=== PATIENT | female | born 2000 | race Caucasian/White ===

== ENCOUNTER → 2021-01-04 | Outpatient (CLI) | payer BC ==
[~2021-01-04] MED LIST: AMITRIPTYLINE H25 M1 PO; AMOXICILLIN 50500 MG PO; CAPACET 325 MG-1 CAP; MOTRIN 600600 MG/TAB PO; NEXPLANON68 MG ID; NORCO 325 MG-51 TAB PO; OMNICEF 300MG300 MG PO; PEPCID 20MG TAB20 MG PO; PERCOCET 325 MG1 TA2 PO; PRIL40 PO; ZOFRAN 4MG T4 MG/TAB PO; ZOFRAN ODT4 MG PO; ZYRTEC 10MG10 MG PO
== END ==
LOC: COL.RAD 09:32
DX: K21.9 Gastro-esophageal reflux disease without esophagitis (principal)
CPT/HCPCS: A9537; J2805

== ENCOUNTER 2021-01-13 11:44 | Day surgery (SDC) | payer BC ==
[~2021-01-13] VITALS: Ht 170.2 cm; Wt 96.2 kg
[~2021-01-13 11:44] MED LIST changes: -AMITRIPTYLINE H25 M1 PO; -MOTRIN 600600 MG/TAB PO; -PEPCID 20MG TAB20 MG PO; -PERCOCET 325 MG1 TA2 PO; -PRIL40 PO; -ZOFRAN 4MG T4 MG/TAB PO; -ZOFRAN ODT4 MG PO; -ZYRTEC 10MG10 MG PO
[2021-01-13] MEDS ORDERED: PRIL40 PO (12:00)
[2021-01-13] MEDS ORDERED: AMITRIPTYLINE H25 M1 PO (12:01)
[2021-01-13] MEDS ORDERED: PEPCID 20MG TAB20 MG PO (12:01)
[2021-01-13] MEDS ORDERED: ZOFRAN 4MG T4 MG/TAB PO (12:01)
[2021-01-13] MEDS ORDERED: ZYRTEC 10MG10 MG PO (12:02)
[2021-01-13 12:22] VITALS: BP 106/72; PULSE 80; TEMP 98.3
[2021-01-13] MEDS ORDERED: ZOFRAN ODT4 MG PO (12:22)
[2021-01-13] MEDS ORDERED: MOTRIN 600600 MG/TAB PO (12:22)
[2021-01-13] MEDS ORDERED: PERCOCET 325 MG1 TA2 PO (12:22)
[2021-01-13 16:30] VITALS: BP 123/73; PULSE 96; TEMP 97.3
--- NOTE | 2021-01-13 16:30 | NUR ---
Patient arrived back into [facility] from PACU. Report received from [employer], Ivanna. Patient states having some mild nausea and moderate discomfort to left upper abdomen. Patient requesting water.
[2021-01-13 16:45] VITALS: BP 127/68; PULSE 87
[2021-01-13 17:00] VITALS: BP 122/70; PULSE 91
--- NOTE | 2021-01-13 17:00 | NUR ---
Patient tolerated water and jello. PRN percocet given for pain. Patient stating having mild nausea but tolerable.
--- NOTE | 2021-01-13 17:15 | NUR ---
Patient up to restroom stand by assist with steady gait. Patient able to void.
--- NOTE | 2021-01-13 17:30 | NUR ---
Patient tolerated food and drink, pain and nausea and tolerated well. Went through discharge instructions with patient and . Verbalized understanding to education. Patient got dressed with assistance.
--- NOTE | 2021-01-13 17:40 | NUR ---
Patient escorted to emergency department entrance via wheelchair, met by minor, . Patient helped into personal vehicle and left in the care of her .
== END 2021-01-13 17:40 | disposition home or self-care (01) ==
LOC: SDCO 11:44
DX: K81.1 Chronic cholecystitis (principal); K82.8 Other specified diseases of gallbladder; K21.9 Gastro-esophageal reflux disease without esophagitis; Z79.899 Other long term (current) drug therapy
CPT/HCPCS: J0330; J0690; J1100; J1170; J1885; J2250; J2405; J2550; J3010; J7120